=== PATIENT | female | born 1970 | race Caucasian/White ===

== ENCOUNTER 2017-03-05 09:23 | Emergency (ER) | payer SELFPAY ==
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
[2017-03-05 11:16] LABS: Hematocrit 34.2 % (37.0-47.0); Hemoglobin 10.7 gm/dL (12.5-16.0); Mean Cell Volume 74.5 fl (78-100); Mean Corpuscular Hemoglobin 23.3 pg (27-31); Mean Corpuscular Hgb Conc 31.3 g/dl (32-36); Mean Platelet Volume 8.9 fl (6.0-9.5); Neutrophil # 6.6 K/mm3 (1.3-6.0); Neutrophil % 70.4 % (42-75.0); Platelet Count 365 K/mm3 (150-450); Red Blood Count 4.59 M/mm3 (4.2-5.4); Red Cell Distribution Width 15.7 % (11.5-14.0); White Blood Count 9.4 K/mm3 (4.0-10.5)
[2017-03-05 12:07] VITALS: BP 136/84
== END 2017-03-05 12:03 | disposition home or self-care (01) ==
LOC: ER 09:23
DX: D64.9 Anemia, unspecified (principal); F41.8 Other specified anxiety disorders; I10 Essential (primary) hypertension